=== PATIENT | female | born 1985 | race African-American/Black ===

== ENCOUNTER 2016-10-02 11:36 | Emergency (ER) | payer MEDICARE, OTHER ==
[~2016-10-02] VITALS: Ht 170.2 cm; Wt 92.0 kg
[~2016-10-02 11:36] MED LIST: IBUP-232 PO; NO; OGESTAB PO; OXYC-360 PO
[2016-10-02 11:38] VITALS: BP 136/80; PULSE 108; RESP 16; TEMP 97; O2SAT 99
--- NOTE | 2016-10-02 11:42 | PD ---
Physical Exam Date Seen by Provider: Oct 02, 2016 Time Seen by Provider: 11:41 Data Data Last Documented VS Vital Signs Date Time Temp Pulse Resp B/P Pulse Ox O2 Delivery O2 Flow Rate FiO2 10/02/16 11:38 97.0 108 16 136/80 99 Room Air MDM Supervised Visit with APPLE: No Narrative Course 31 YO F with complaint of dizziness, N/V x ~ 10 minutes. LMP 6/?? Vitals reviewed. Awaiting bed placement. Mayte Bowens Oct 02, 2016 11:42
== END 2016-10-02 12:20 | disposition left against medical advice (07) ==
LOC: NED 11:36
DX: R42 Dizziness and giddiness (principal)
CPT/HCPCS: 99281

== ENCOUNTER 2017-08-07 22:55 | Emergency (ER) | payer MEDICARE, OTHER ==
[~2017-08-07] VITALS: Ht 157.5 cm; Wt 92.0 kg
[2017-08-07 23:14] VITALS: BP 176/109; PULSE 82; PULSE 9; RESP 20; TEMP 97.3; O2SAT 100; O2SAT 99
--- NOTE | 2017-08-07 23:41 | PD ---
HPI Chief Complaint: Injury Time Seen by Provider: 23:30 Travel History International Travel<30 days: No Contact w/Intl Traveler<30days: No Traveled to known affect area: No History of Present Illness HPI Patient accidentally landed on her right shoulder was almost entire week after jumping on a trampoline, patient states that her friend apparently "put it back in" Patient states allergy to Tylenol amoxicillin oxycodone Past medical history significant for migraine, hypothyroidism due to thyroid surgery, and D&C. [facility] Past Medical History Migraines: Yes ?: Unknown LMP: 06/22/17 : 2 Para: 0 Miscarriage: 1 : 1 Dilation and Curettage (D&C): Yes Past Surgical History Other Surgery: Yes (THYROID SURGERY- PER PT. ) Social History Alcohol Use: No Tobacco Use: No Substance Use: No Allergies-Medications (Allergen,Severity, Reaction): Coded Allergies: acetaminophen (Verified Allergy, Severe, 08/07/17) SEIZURE oxycodone (Verified Allergy, Severe, 08/07/17) SEIZURE amoxicillin (Verified Adverse Reaction, Severe, 08/07/17) "MESSES WITH MY ASTHMA" Reported Meds & Prescriptions Reported Meds & Active Scripts Active Motrin (Ibuprofen) 600 Mg Tab 600 Mg PO TID WITH MEALS Percocet (Oxycodone/Acetaminophen) 5 Mg/325 Mg Tab 1 Tab PO QIDPRN FOR PAIN Ogestrel #28/Pkg (Use For Ovral) (Ethinyl Estradiol/Norgestrel) Tab 1 Tab PO DIRECTED 1 EVERY 6 HOURS X 4 DOSES, THEN 1 EVERY 8 HOURS X 3 DOSES, THEN 1 TWICE A DAY X 2 DOSES, THEN DAILY UNTIL COMPLETE Reported [No] Review of Systems Musculoskeletal: Positive: Limited ROM, Pain (Right shoulder) Physical Exam Narrative GENERAL: SKIN: Warm and dry. HEAD: Atraumatic. Normocephalic. EYES: Pupils equal and round. No scleral icterus. No injection or drainage. ENT: No nasal bleeding or discharge. Mucous membranes pink and moist. NECK: Trachea midline. No JVD. CARDIOVASCULAR: Regular rate and rhythm. RESPIRATORY: No accessory muscle use. Clear to auscultation. Breath sounds equal bilaterally. GASTROINTESTINAL: Abdomen soft, non-tender, nondistended. MUSCULOSKELETAL: Extremities without clubbing, cyanosis, or edema. No obvious deformities. Tenderness to palpation along right clavicle, there is fullness to the right shoulder NEUROLOGICAL: Awake and alert. No obvious cranial nerve deficits. Motor grossly within normal limits. Five out of 5 muscle strength in the arms and legs. Normal speech. PSYCHIATRIC: Appropriate mood and affect; insight and judgment normal. Data Data Last Documented VS Vital Signs Date Time Temp Pulse Resp B/P (MAP) Pulse Ox O2 Delivery O2 Flow Rate FiO2 08/07/17 23:14 97.3 82 20 176/109 (131) 100 Orders Orders Shoulder, Complete (>2vws) (08/07/17 23:32) Chest, Single Ap (08/07/17 23:32) [facility] Medical Decision Making Medical Screen Exam Complete: Yes Emergency Medical Condition: Yes Medical Record Reviewed: Yes Differential Diagnosis Rotator cuff injury versus shoulder sprain versus clavicle fracture versus clavicle dislocation versus sprain shoulder dislocation versus shoulder fracture Narrative Course X-ray does not show any evidence of any fractures, dislocations or subluxations. Also no evidence of any clavicle fracture or dislocation Diagnosis Primary Impression: shoulder pain r/o rotator cuff injury Patient Instructions: General Instructions, Rotator Cuff Injury (ED) Scripts Baclofen (Baclofen) 20 Mg Tab 20 MG PO TID for Muscle Spasm for 5 Days, #15 TAB 0 Refills Prov: Erich Hawkins MD 08/08/17 Tramadol (Ultram) 50 Mg Tab 50 MG PO Q8H Y for PAIN, #15 TAB 0 Refills Prov: Erich Hawkins MD 08/08/17 Disposition: 01 DISCHARGE HOME Condition: Stable Erich Hawkins MD Aug 07, 2017 23:41
[2017-08-08] MEDS ORDERED: BACL20TA PO (00:18)
[2017-08-08] MEDS ORDERED: TRAM50 PO (00:18)
--- NOTE | 2017-08-08 00:23 | RADRPT ---
EXAM DATE/TIME: 08/07/2017 23:43 [facility] COMPARISON: No previous studies available for comparison. INDICATIONS : Right shoulder pain post fall. MEDICAL HISTORY : None. SURGICAL HISTORY : None. ENCOUNTER: Initial ACUITY: 1 day PAIN SCORE: 10/10 LOCATION: Right shoulder FINDINGS: A single view of the chest demonstrates the lungs to be symmetrically aerated without evidence of mas s, infiltrate or effusion. The cardiomediastinal contours are unremarkable. Osseous structures are intact. CONCLUSION: 1. No acute cardiopulmonary disease. Solomon Ledezma MD on August 08, 2017 at 0:21 Board Certified Radiologist. This report was verified electronically.
--- NOTE | 2017-08-08 00:24 | RADRPT ---
EXAM DATE/TIME: 08/07/2017 23:45 [facility] COMPARISON: No previous studies available for comparison. INDICATIONS : Right shoulder pain post fall. MEDICAL HISTORY : None. SURGICAL HISTORY : None. ENCOUNTER: Initial ACUITY: 1 day PAIN SCORE: 10/10 LOCATION: Right shoulder FINDINGS: Multiple view examination of the right shoulder demonstrates no evidence of fracture or dislocation. The glenohumeral and acromioclavicular joints are maintained. There is normal range of motion betwe en internal and external rotation. Bony mineralization is normal. CONCLUSION: 1. Negative examination of the shoulder. Solomon Ledezma MD on August 08, 2017 at 0:22 Board Certified Radiologist. This report was verified electronically.
[2017-08-08] MEDS ORDERED: KETOROLAC TROMETHAMINE 60 MG/2 ML (IM) VIAL IM ONE (00:30)
== END 2017-08-08 01:02 | disposition home or self-care (01) ==
LOC: NEPD 22:55
DX: M25.511 Pain in right shoulder (principal)
CPT/HCPCS: 71045; 73030; 96372; 99283; J1885